=== PATIENT | female | born 1945 | race Two or more races ===

== ENCOUNTER 2024-07-28 20:05 | Emergency (ER) | payer MEDICARE, OTHER ==
[~2024-07-28] VITALS: Ht 160 cm; Wt 63.7 kg
[2024-07-28 20:21] VITALS: BP 156/85; PULSE 90; RESP 18; O2SAT 94
--- NOTE | 2024-07-28 20:33 | ED.PDOC ---
History of Present Illness HPI Comments 78 year old female brought in by EMS presents to the ED with a chief complaint of generalized weakness onset today. Per EMS, patient only speaks Setswana and daughter translates on the phone. Daughter states patient was seen by PCP 2 days ago, diagnosed with UTI, began Keflex today. Patient was speaking with daughter on phone when daughter noticed patient was altered and incoherent. Patient is currently experiencing dysuria, frequency, fever, chills, body aches for the past 3 days. Patient told daughter she is currently experiencing shortness of breath as well as nausea. Patient was given Zofran prior to ED arrival. PMHx pancreatic cancer, DM, CA, urosepsis. Denies chest pain, dizziness, headache, blurry vision, vomiting, diarrhea, hematuria. No other symptoms or modifying factors present at this time. Chief Complaint: Flu like Time Seen by MD: 20:12 Reviewed Notes: Medications, Allergies Allergies: Coded Allergies: NO KNOWN ALLERGIES (Unverified , 07/28/24) Information Source: Patient, Relative (Child), Emergency Med Personnel Mode of Arrival: EMS Severity: Moderate Timing: Days Duration: Since onset Prehospital treatment: Other (keflex) Vital Signs Vital Signs Date Time Temp Pulse Resp B/P (MAP) Pulse Ox O2 Delivery O2 Flow Rate FiO2 07/28/24 20:21 99.3 90 18 156/85 (108) 94 Physical Exam General: Awake, alert and oriented. No acute distress. Skin: Skin in warm, dry and intact. Appropriate color for ethnicity. HEENT: The head is normocephalic and atraumatic. Conjunctivae are clear without exudates or hemorrhage. Sclera is non-icteric. EOM are intact. No signs of nystagmus. Eyelids are normal in appearance without swelling or lesions. Oral mu cosa is pink and moist Neck: The neck is supple with normal range of motion. No JVD. Cardiac: Heart rate and rhythm are normal. No murmurs, gallops, or rubs are auscultated. Respiratory: No signs of respiratory distress. Lung sounds are clear in all l obes bilaterally without rales, ronchi, or wheezes. Abdominal: Abdomen is soft, non-tender without distention. Bowel sounds are present and normoactive in all four quadrants. Extremities: Upper and lower extremities are atraumatic in appearance without deformity or edema. Neurological: The patient is awake, alert and oriented to person, place, and time with normal speech. Speech is clear. There is no facial asymmetry. She is able to use her cell phone to call her daughter and have conversation with her daughter on the phone. She ambulated to the bathroom with assistance. Somewhat unsteady gait. Psychiatric: Appropriate mood and affect. Good judgement and insight. No visual or auditory hallucinations. Review of Systems: REVIEW OF SYSTEMS: Positive chills and rigors, HEENT: No sore throat, no earache, no congestion, no neck pain. Cardiac: Positive chest pain 4 days ago, no chest pain at this time. No palpitations. Lungs: Positive shortness of breath, no cough. GI: Positive nausea, no vomiting, no diarrhea, no constipation, no abdominal pain : Positive dysuria, positive frequency, No hematuria. Musculoskeletal: No joint pain , no joint swelling, no extremity edema. Skin: No rash, no itching. Neuro: Positive confusion. 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 Was a procedure done?: No Differential Dx Considerations may include: Differential diagnoses considered include but are not limited to urinary tract infection, nephrolithiasis, sepsis, viral syndrome, viral respiratory infection, acute coronary syndrome, pulmonary embolism, pneumonia, CVA other X-Ray, Labs, Meds, VS Vital Signs Date Time Temp Pulse Resp B/P (MAP) Pulse Ox O2 Delivery O2 Flow Rate FiO2 07/28/24 20:21 99.3 90 18 156/85 (108) 94 07/28/24 20:07 90 Lab Test 07/28/24 23:32 07/28/24 23:13 07/28/24 21:53 07/28/24 20:51 Range/Units Influenza Type A Antigen Negative Negative Influenza Type B Antigen Negative Negative SARS-CoV-2 Antigen (Rapid) Negative NEGATIVE Urine Color Yellow Yellow Urine Clarity Turbid H Clear Urine pH 7.0 5.0-9.0 Urine Specific [place] 1.022 1.001-1.035 Urine Protein 1+ H Negative Urine Ketones Trace Negative Urine Blood Negative Negative /uL Urine Nitrite Negative Negative Urine Bilirubin Negative Negative Urine Urobilinogen 3 H Negative mg/dL Urine Leukocyte Esterase 3+ Negative /uL Urine RBC 5 0 - 4 /hpf Urine Microscopic WBC 115 H 0-5 /HPF Urine Squamous Epithelial Cells Few <5 /hpf Urine Bacteria None seen None Seen /hpf Urine Mucus Few None Seen Urine Glucose Normal Normal mg/dL Urine Test Negative Negative Troponin I High Sensitivity 5 6 </=34 ng/L White Blood Count 11.8 H 4.4-10.8 10^3/uL Red Blood Count 4.41 4.0-5.20 10^6/uL Hemoglobin 14.1 12.2-16.2 g/dL Hematocrit 42.2 36.0-46.0 % Mean Corpuscular Volume 95.8 80.0-100.0 fL Mean Corpuscular Hemoglobin 31.9 28.0-32.0 pg Mean Corpuscular Hemoglobin Concent 33.3 32.0-36.0 g/dL Red Cell Distribution Width 13.1 11.8-14.3 % Platelet Count 175 140-450 10^3/uL Mean Platelet Volume 8.8 6.9-10.8 fL Neutrophils (%) (Auto) 91.2 H 37.0-80.0 % Lymphocytes (%) (Auto) 4.2 L 10.0-50.0 % Monocytes (%) (Auto) 4.1 0.0-12.0 % Eosinophils (%) (Auto) 0.2 0.0-7.0 % Basophils (%) (Auto) 0.3 0.0-2.0 % Neutrophils # (Auto) 10.8 H 1.6-8.6 10 ^3/uL Lymphocytes # (Auto) 0.5 0.4-5.4 10 ^3/uL Monocytes # (Auto) 0.5 0-1.3 10 ^3/uL Eosinophils # (Auto) 0 0-0.8 10 ^3/uL Basophils # (Auto) 0 0-0.2 10 ^3/uL Nucleated Red Blood Cells 0.0 % D-Dimer, Quantitative 0.91 H 0.0-0.49 mg/L FEU Sodium Level 138 136-145 mmol/L Potassium Level 4.0 3.5-5.1 mmol/L Chloride Level 104 98-107 mmol/L Carbon Dioxide Level 25 20-31 mmol/L Anion Gap 9 5-15 Blood Urea Nitrogen 17 9-23 mg/dL Creatinine 0.69 0.550-1.02 mg/dL Glomerular Filtration Rate Calc 88 >90 mL/min BUN/Creatinine Ratio 24.6 H 10.0-20.0 Serum Glucose 172 H 74-106 mg/dL Lactic Acid Level 1.2 0.4-2.0 mmol/L Calcium Level 9.5 8.7-10.4 mg/dL Total Bilirubin 1.0 0.2-1.0 mg/dL Aspartate Amino Transferase (AST) 22 13-40 U/L Alanine Aminotransferase (ALT) 22 7-40 U/L Alkaline Phosphatase 92 46-116 U/L B-Type Natriuretic Peptide 54.75 0-100 pg/mL Total Protein 6.9 5.7-8.2 g/dL Albumin 4.6 3.2-4.8 g/dL Current Medications Medications (Trade) Dose Ordered Sig/Elida Route Start Time Stop Time Status Last Admin Cefepime HCl 50 ml @ 12.5 mls/hr ONCE ONCE IV 07/29/24 00:30 07/29/24 04:29 DC 07/29/24 02:18 Sodium Chloride 1,000 ml @ 1,000 mls/hr Q1H ONCE IV 07/29/24 00:45 07/29/24 01:44 DC 07/29/24 02:18 [place] [address] Ph: [phone] DIAGNOSTIC IMAGING Diagnostic Imaging Report : [id number] Signed PATIENT: NICOLE LOUISE ACCT: [id number] UNIT: [id number] : 1945 LOC: ER ROOM / BED: / AGE / SEX: 78 / F ADM STATUS: REG ER SERVICE 21 ORDERING PHYSICIAN: JOHAN BARRY MD PROCEDURE(s): CXR1 - CHEST XRAY 1 VIEW REASON: cp ORDER NUMBER(s): [id number], ACCESSION NUMBER(s): [id number] EXAM: XY CHEST XRAY 1 VIEW CLINICAL HISTORY: cp TECHNIQUE: Single frontal view of the chest WID: COMPARISON: None FINDINGS: Lines and tubes: None Chest: The heart size and pulmonary vasculature is within normal limits. Calcified plaque projects over the aortic arch. No pleural effusion, pneumothorax, or consolidation. The osseous structures are grossly intact. IMPRESSION: No acute cardiopulmonary abnormality. ATED BY: GARRICK SPRINGER MD DICTATED DATE/TIME: 07/28/242148 SIGNED BY: GARRICK SPRINGER MD SIGNED DATE/TIME: 07/28/242148 CC: Time of 1ST Reevaluation: 20:42 Reevaluation 1ST: Unchanged Patient Education/Counseling: Diagnosis, Treatment, Prognosis Family Education/Counseling: No Family Present Additional Information The following tests were ordered, and results were reviewed by me: EKG, XY CHEST, CBC, CMP, TROP-x3, BNP, PREGUA, UA, LA W/REFLEX, LI[ASE, RSV, RAPID INFLUENZA A&B, COVID, PROCALCITONIN, D-DIMER Additional Information was gathered from interviewing the following independent historians: EMS, daughter I reviewed and agreed with the following test results read by other providers: XY CHEST I discussed treatment and results with medical personnel and patient, daughter Departure 1 Departure Time of Disposition: 02:48 Impression: Primary Impression: Urinary tract infection Additional Impressions: Confusion Unsteady gait when walking Disposition: 01 HOME / SELF CARE / HOMELESS Condition: Stable Additional Instructions: ED DISCHARGE INSTRUCTIONS Instructions: Please read all instructions provided in this packet carefully. Start taking Keflex as prescribed by Dr. Levine Although you have been discharged from the Emergency Department, this does not mean that you have a "clean bill of health". It is possible that you are in the process of developing a serious illness. This is why you must return to the ED without fail if any new or worsening symptoms (especially if your symptoms include chest pain, trouble breathing, abdominal pain, fever, headache, confusion, trouble seeing, or trouble walking) It is also very important that you see a primary care doctor within the next 3-5 days to follow up. If you are unable to get an appointment, return to the ED for re-evaluation. Urinary Tract Infection (UTI) in Women: Care Instructions A urinary tract infection (UTI) is an infection caused by bacteria. It can happen anywhere in the urinary tract. A UTI can happen in the: Kidneys. Ureters, the tubes that connect the kidneys to the bladder. Bladder. Urethra, where the urine comes out. Most UTIs are bladder infections. They often cause pain or burning when you urinate. Most UTIs can be cured with antibiotics. If you are prescribed antibiotics, be sure to complete your treatment so that the infection does not get worse. Follow-up care is a davis part of your treatment and safety. Be sure to make and go to all appointments, and call your doctor if you are having problems. It's al so a good idea to know your test results and keep a list of the medicines you take. How can you care for yourself at home? Take your antibiotics as directed. Do not stop taking them just because you feel better. You need to take the full course of antibiotics. Drink extra water and other fluids for the next day or two. This will help make the urine less concentrated and help wash out the bacteria that are causing the infection. (If you have kidney, heart, or liver disease and have to limit fluids, talk with your doctor before you increase the amount of fluids you drink.) Avoid drinks that are carbonated or have caffeine. They can irritate the bladder. Urinate often. Try to empty your bladder each time. To relieve pain, take a hot bath or lay a heating pad set on low over your lower belly or genital area. Never go to sleep with a heating pad in place. To prevent UTIs Drink plenty of water each day. This helps you urinate often, which clears bacteria from your system. (If you have kidney, heart, or liver disease and have to limit fluids, talk with your doctor before you increase the amount of fluids you drink.) Urinate when you need to. If you are sexually active, urinate right after you have sex. Change sanitary pads often. Avoid douches, bubble baths, feminine hygiene sprays, and other feminine hygiene products that have deodorants. After going to the bathroom, wipe from front to back. When should you call for help? Call your doctor now or seek immediate medical care if: You have new or worse fever, chills, nausea, or vomiting. You have new pain in your back just below your rib cage. This is called flank pain. There is new blood or pus in your urine. You have any problems with your antibiotic medicine. Watch closely for changes in your health, and be sure to contact your doctor if: You are not getting better after taking an antibiotic for 2 days. Your symptoms go away but then come back. Preventing falls Older adults and people with medical problems are at risk of falling or tripping. This can result in broken bones or more serious injuries. Use the tips below to make changes in the home to prevent falls. What to Expect at Home Falls can happen anywhere. This includes inside and outside the home. Take action to prevent falls, such as setting up a safe home, avoiding things that can cause falls, and exercising to build strength and balance. Home Setup Have a bed that is low, so that your feet touch the floor when you sit on the edge of the bed. Keep tripping hazards out of your home. Remove loose wires or cords from areas you walk through to get from one room to another. Remove loose throw rugs. Do not keep small pets that you could trip over in your home. Fix any uneven selena in doorways. Have good lighting, especially for the path from the bedroom to the bathroom and in the bathroom. Stay safe in the bathroom. Put hand rails in the bathtub or shower and next to the toilet. Place a slip-proof mat in the bathtub or shower. Reorganize the home so things are easier to reach. Keep a cordless or cell phone with you so you have it when you need to make or receive calls. Set up your home so that you do not have to climb steps. Put your bed or bedroom on the first floor. Have a bathroom or a portable commode on the same floor where you spend most of your day. If you do not have a caregiver, ask your health care provider about having someone come to your home to check for safety problems. Home Care Weak muscles that make it more difficult to stand up or keep your balance are a common cause of falls. Balance problems can also cause falls. When you walk, avoid sudden movements or changes in position. Wear shoes with low heels that fit well. Rubber soles can help keep you from slipping. Stay away from water or ice on sidewalks. Do not stand on step ladders or chairs to reach things. Ask your provider about medicines you may be taking that can make you dizzy. Your provider may be able to make some medicine changes that could reduce falls. Ask your provider about a cane or walker. If you use a walker, attach a small basket to it to keep your phone and other important items in it. A walker with an inbuilt seat will allow you to sit to rest while walking if you need to. Exercise to Help Build Your Strength When you stand up from a sitting position, go slowly. Hold on to something stable. If you are having problems getting up, ask your provider about seeing a physical therapist. The therapist can show you how to build your strength and balance to make getting up and walking easier. When to Call the Doctor Contact your provider if you have fallen, or if you almost fall. Discharged With: Relative (Daughter) Comments 78-year-old female with urinary tract infection, confusion, unsteady gate. Discussed with both of patient's daughters. They would rather take patient home for outpatient treatment. Patient is awake, alert, ambulating in the emergency department, no neuro deficit. Vital signs stable. Dose of cefepime and IV fluids administered in the ED. She is felt stable for discharge home to follow up with PCP. Extensive evaluation was performed in attempt to identify or rule out: (See differential diagnosis section) The following tests were ordered, and results were reviewed by me: (See diagnostic results section) The following test were independently interpreted by me: N/A I reviewed and agreed with the following test results read by other providers: CXR I reviewed the following notes from the pt's past medical encounters: (None available at this time) Additional information was gathered from interviewing the following independent historians: Patient's daughter via telephone, EMS personnel Discussion of management or test interpretation with external physician/other qualified health emergency care attendant: Patient's daughter/ treating phsyician Dr. Levine 00:[address] Levine , she sent prescription for keflex to patient's pharmacy. Agrees with discharge with patient's other daughter pending dose of IV ABx and IVF Drug therapy requiring intensive monitoring for toxicity: N/A Parenteral controlled substances: N/A Decision regarding elective major surgery with identified patient or procedure risk factors: N/A Decision regarding emergency major surgery: N/A Decision not to resuscitate or to de-escalate care because of poor prognosis: N/A Diagnosis or treatment significantly limited by social determinants of health: Patient lives alone Decision regarding hospitalization or escalation of hospital level of care: Risks and benefits of admission for further treatment of patient's condition was considered however due to patient's stable condition patient will be discharged to follow up closely or return to care for worsening of condition or inability to follow up. test ordered in error Critical Care Note Critical Care Time?: No Stability Stability form required: No I personally scribed for JOHAN BARRY MD ([email or web address]) on 07/28/24 at 20:33. Electronically submitted by Desiree Swann ([email or web address]). I personally scribed for JOHAN BARRY MD ([email or web address]) on 07/28/24 at 21:40. Electronically submitted by Desiree Swann ([email or web address]). I personally scribed for JOHAN BARRY MD ([email or web address]) on 07/28/24 at 21:58. Electronically submitted by Desiree Swann ([email or web address]). JOHAN BARRY MD Jul 28, 2024 20:33
[2024-07-28 21:16] LABS: Basophils # (auto) 0 10 ^3/uL (0-0.2); Basophils % (auto) 0.3 % (0.0-2.0); Eosinophils # (auto) 0 10 ^3/uL (0-0.8); Eosinophils % (auto) 0.2 % (0.0-7.0); Hematocrit 42.2 % (36.0-46.0); Hemoglobin 14.1 g/dL (12.2-16.2); Lymphocytes # (auto) 0.5 10 ^3/uL (0.4-5.4); Lymphocytes % (auto) 4.2 % (10.0-50.0); Mean Corpuscular Hemoglobin 31.9 pg (28.0-32.0); Mean Corpuscular Hgb Conc. 33.3 g/dL (32.0-36.0); Mean Corpuscular Volume 95.8 fL (80.0-100.0); Monocytes # (auto) 0.5 10 ^3/uL (0-1.3); Monocytes % (auto) 4.1 % (0.0-12.0); Neutrophils # (auto) 10.8 10 ^3/uL (1.6-8.6); Neutrophils % (auto) 91.2 % (37.0-80.0); Platelet Count (auto) 175 10^3/uL (140-450); Red Blood Cells 4.41 10^6/uL (4.0-5.20); Red Cell Distribution Width 13.1 % (11.8-14.3); White Blood Cell 11.8 10^3/uL (4.4-10.8)
[2024-07-28 21:33] LABS: Alanine Aminotransferase 22 U/L (7-40); Alkaline Phosphatase 92 U/L (46-116); Anion Gap 9 (5-15); BUN/Creatinine Ratio 24.6 (10.0-20.0); Blood Urea Nitrogen 17 mg/dL (9-23); Calcium 9.5 mg/dL (8.7-10.4); Carbon Dioxide 25 mmol/L (20-31); Chloride 104 mmol/L (98-107); Sodium 138 mmol/L (136-145)
[2024-07-28 21:34] LABS: Albumin 4.6 g/dL (3.2-4.8); Aspartate Aminotransferase 22 U/L (13-40); Total Protein 6.9 g/dL (5.7-8.2)
[2024-07-28 21:49] LABS: Glucose 172 mg/dL (74-106)
--- NOTE | 2024-07-28 21:52 | DVH ---
EXAM: XY CHEST XRAY 1 VIEW CLINICAL HISTORY: cp TECHNIQUE: Single frontal view of the chest WID: COMPARISON: None FINDINGS: Lines and tubes: None Chest: The heart size and pulmonary vasculature is within normal limits. Calcified plaque projects over the aortic arch. No pleural effusion, pneumothorax, or consolidation. The osseous structures are grossly intact. IMPRESSION: No acute cardiopulmonary abnormality.
[2024-07-28] MEDS: IOHEXOL 350 MG/ML 100ML IJ ONE (23:00)
[2024-07-28] MEDS: IOHEXOL 180 MG/ML 20ML VIAL IJ ONE (23:00)
[2024-07-28 23:25] LABS: Urine Bacteria None Seen /hpf (None Seen)
[2024-07-28 23:39] LABS: Urine Blood Negative /uL (Negative); Urine Clarity Turbid (Clear); Urine Color Yellow (Yellow); Urine Mucus FEW (None Seen); Urine Protein, UAD 1+ (Negative); Urine Specific Gravity 1.022 (1.001-1.035); Urine Squamous Epithelial Cell FEW /hpf (<5); Urine Urobilinogen 3 mg/dL (Negative); Urine WBC 115 /HPF (0-5)
--- NOTE | 2024-07-29 00:07 | DVH ---
Exam: CT CHEST/AB/PL W CON- IV ONLY History: Elevated D-dimer, SOB, r/o PE HX OF [place]ARR[place] Ca Comparison Study: None Contrast: Type of contrast: Omnipaque 350 Contrast injected: 100 mL Contrast wasted: 0 TECHNIQUE: Multidetector CT of chest abdomen and pelvis with IV contrast. Radiation Dose Information: CT Dose: CTDI volume is 5.78 mGy. Dose-length product is 440.71 mGy*cm FINDINGS: Right heart is enlarged. There is no evidence for pulmonary embolus lungs demonstrate mild dependent atelectasis and scarring in the right and left apices. Lower esophagus is generally unremarkable. Spleen is normal in size. Stomach mucosa is unremarkable. The liver is generally unremarkable kidneys and adrenals pancreas appear to be normal limits. There is large amount of stool in descending colon throughout the colon large amount of stool seen in the r ectosigmoid. No evidence for gastrointestinal obstruction no evidence for acute appendicitis the appe ndix is seen and is normal. There is disc disease L5-S1 in general the bones are osteopenic small lev ocurvature involving lumbosacral spine uterus appears to be retroverted. Mucosa of the rectosigmoid i s normal no evidence for pulmonary nodules spleen liver, kidneys and adrenals are generally unremarka ble. Stool burden is moderate definite obstruction or diverticular disease donor aorta demonstrates p atchy calcifications which are as yet not extensive. There is minimal disc disease at L5-S1 otherwise lumbosacral spine the vertebral bodies are unremarkable. Portal vein is normal. Hips appear to be wi thin normal limits. IMPRESSION: 1. Right heart is enlarged. No pulmonary emboli. Otherwise unremarkable study HS:Y
[2024-07-29 00:16] LABS: COVID19 ANTIGEN SOFIA FIA NEGATIVE (NEGATIVE); Rapid Influenza A Negative (Negative); Rapid Influenza B Negative (Negative)
[2024-07-29] MEDS: SODIUM CHLORIDE 0.9% 1,000 ML IV ONE (02:18)
[2024-07-29] MEDS: CEFEPIME 2GM/50ML NS 50 ML IV ONE (02:18)
== END 2024-07-29 06:16 | disposition home or self-care (01) ==
LOC: ER 20:05 → EDBD 20:05 → ER 07-29 06:16
DX: N39.0 Urinary tract infection, site not specified (principal); R41.0 Disorientation, unspecified; R26.81 Unsteadiness on feet; E11.9 Type 2 diabetes mellitus without complications; I25.2 Old myocardial infarction; Z20.822 Contact with and (suspected) exposure to COVID-19
CPT/HCPCS: 36415; 71045; 71260; 74177; 80053; 81001; 81025; 83605; 83880; 84484; 85025; 85379; 87086; 87426; 87804; 96365; 99285; J0692; J7030; Q9965; Q9967